=== PATIENT | female | born 1980 | race American Indian/Alaskan Native ===

== ENCOUNTER 2022-04-26 12:41 | Emergency (ER) | payer OTHER ==
[2022-04-26] MEDS ORDERED: ONDANSETRON 4 MG/2 ML INJ IV ONE (13:27)
[2022-04-26] MEDS ORDERED: FAMOTIDINE 20 MG/2 ML INJ IV ONE (13:27)
[2022-04-26] MEDS ORDERED: SODIUM CHLORIDE 0.9% 1000 ML 1,000 ML IV ONE (13:27)
[2022-04-26 14:51] LABS: Basophils % (Auto) 0.4 % (0.0-1.8); Eosinophils % (Auto) 0.3 % (0.0-4.3); Hematocrit 40.8 % (30.3-42.9); Hemoglobin 13.5 gm/dl (10.1-14.3); Lymphocytes # (Auto) 1.8 K/mm3 (1.2-5.4); Lymphocytes % (Auto) 18.9 % (13.4-35.0); Mean Corpuscular HGB Conc 33 % (30-34); Mean Corpuscular Volume 91 fl (79-97); Monocytes # (Auto) 0.6 K/mm3 (0.0-0.8); Monocytes % (Auto) 6.9 % (0.0-7.3); Platelet Count 228 K/mm3 (140-440); Red Blood Count 4.47 M/mm3 (3.65-5.03); Red Cell Distribution Width 14.8 % (13.2-15.2)
--- NOTE | 2022-04-26 14:59 | Emergency Department Report ---
ED N/V/D HPI - General Chief complaint: Nausea/Vomiting/Diarrhea Stated complaint: ABD PAIN/VOMITTING PUI?: Yes Time Seen by Provider: 04/26/22 13:05 Source: patient, EMS Mode of arrival: Ambulatory Limitations: No Limitations - History of Present Illness Initial comments: This is a 41-year-old female with a past medical history endometriosis and acid reflux who presents to the ED today via ambulance from work complaining of na usea vomiting and upper abdominal pain that began this morning while she was at work. Patient denies diarrhea, fever, chills. Patient states upper abdominal pain is localized to the upper abdomen and describes it as burning aching sharp. MD complaint: nausea, vomiting, abdominal pain Description of Vomiting: watery - Related Data Previous Rx's Medication Instructions Recorded Last Taken Type Dicyclomine [Bentyl] 40 mg PO BID #30 tablet 04/26/22 Unknown Rx Metoclopramide [Reglan] 10 mg PO TID #30 tab 04/26/22 Unknown Rx Omeprazole 20 mg PO BID #40 cap 04/26/22 Unknown Rx traMADoL [Ultram 50 MG tab] 50 mg PO Q6HR PRN #15 tablet 04/26/22 Unknown Rx Allergies Allergy/AdvReac Type Severity Reaction Status Date / Time No Known Allergies Allergy Unverified 04/26/22 13:01 ED Review of Systems ROS: Stated complaint: ABD PAIN/VOMITTING Other details as noted in HPI Constitutional: denies: chills, fever Eyes: denies: eye pain, eye discharge, vision change ENT: denies: ear pain, throat pain Respiratory: denies: cough, shortness of breath, wheezing Cardiovascular: denies: chest pain, palpitations Endocrine: no symptoms reported Gastrointestinal: abdominal pain, nausea, vomiting. denies: diarrhea Genitourinary: denies: urgency, dysuria, frequency, discharge Musculoskeletal: denies: back pain, joint swelling, arthralgia Skin: denies: rash, lesions Neurological: denies: headache, weakness, paresthesias Psychiatric: denies: anxiety, depression Hematological/Lymphatic: denies: easy bleeding, easy bruising ED Past Medical Hx - Medications Home Medications: Home Medications Medication Instructions Recorded Confirmed Last Taken Type Dicyclomine [Bentyl] 40 mg PO BID #30 tablet 04/26/22 Unknown Rx Metoclopramide [Reglan] 10 mg PO TID #30 tab 04/26/22 Unknown Rx Omeprazole 20 mg PO BID #40 cap 04/26/22 Unknown Rx traMADoL [Ultram 50 MG tab] 50 mg PO Q6HR PRN #15 tablet 04/26/22 Unknown Rx ED Physical Exam - General Limitations: No Limitations General appearance: alert, in distress, other (Clammy and sweaty) - Head Head exam: Present: atraumatic, normocephalic - Eye Eye exam: Present: normal appearance, PERRL Pupils: Present: normal accommodation - ENT ENT exam: Present: mucous membranes moist - Neck Neck exam: Present: normal inspection, full ROM - Respiratory Respiratory exam: Present: normal lung sounds bilaterally. Absent: respiratory distress, wheezes - Cardiovascular Cardiovascular Exam: Present: regular rate, normal rhythm. Absent: systolic murmur, diastolic murmur, rubs, gallop - GI/Abdominal GI/Abdominal exam: Present: soft, tenderness (To upper quadrant of the abdomen. Nontender in all other quadrants.), normal bowel sounds. Absent: guarding, rebound, rigid - Extremities Exam Extremities exam: Present: normal inspection, full ROM - Back Exam Back exam: Present: normal inspection, full ROM. Absent: CVA tenderness (R), CVA tenderness (L) - Neurological Exam Neurological exam: Present: alert, oriented X3 - Psychiatric Psychiatric exam: Present: normal affect, normal mood - Skin Skin exam: Present: warm, dry, intact, normal color. Absent: rash ED Course Vital Signs 04/26/22 12:41 Temperature 98.0 F Pulse Rate 88 Respiratory 18 Rate Blood Pressure 124/80 [Left] O2 Sat by Pulse 98 Oximetry ED Medical Decision Making - Lab Data Result diagrams: 04/26/22 13:20 04/26/22 13:20 - Radiology Data Radiology results: report reviewed ULTRASOUND ABDOMEN, COMPLETE INDICATION: upper abd pain w vomitting. COMPARISON: No relevant prior imaging study available. FINDINGS: Pancreas: No significant abnormality. Abdominal Aorta: No significant abnormality. IVC: No significant abnormality. Liver: The liver measures 15 cm in length. No significant abnormality. Normal hepatopedal blood flow in the main portal vein. Gallbladder: No significant abnormality. Bile ducts: No significant abnormality. Common bile duct measures 3 mm. Kidneys: Right: 10.2 cm in length. No significant abnormality. Left: 10.8 cm in length. No significant abnormality. Spleen: No significant abnormality. Free fluid: None. Additional Findings: None. IMPRESSION: No sonographic abnormality of the abdomen. Signer Name: Colton Fox Jr, MD Signed: 04/26/2022 4:00 PM Workstation Name: [id number] - Medical Decision Making This 41-year-old female presents with acute onset of nausea and vomiting today most like secondary to the acid reflux gastritis. All labs within normal limits. Urinalysis is negative. Ultrasound negative. Patient received medication in the ED. Patient upon reevaluation reports feeli ng better. Nausea/vomiting resolved. Vital signs are normal. Patient is in no acute distress. 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 Discussed brat diet. Patient understand instructions. Able to speak in clear sentences. Critical care attestation.: If time is entered above; I have spent that time in minutes in the direct care of this critically ill patient, excluding procedure time. ED Disposition Clinical Impression: Gastritis, Gastroenteritis, GERD with esophagitis Disposition: HOME / SELF CARE / HOMELESS Is pt being admited?: No Does the pt Need Aspirin: No Condition: Stable Instructions: Gastritis, Adult, [id number], Viral Gastroenteritis, Adult, Heartburn, [id number] Additional Instructions: Make sure to follow up with the primary care physician as discussed. Take all your medications as you've been prescribed. If you have any worsening symptoms or develop new symptoms please return to ED immediately. Prescriptions: Dicyclomine [Bentyl] 40 mg PO BID #30 tablet Omeprazole 20 mg PO BID #40 cap Metoclopramide [Reglan] 10 mg PO TID #30 tab traMADoL [Ultram 50 MG tab] 50 mg PO Q6HR PRN #15 tablet PRN Reason: Pain Referrals: [facility]EM[facility] [Primary Care Provider] - 3-5 Days [facility] [Provider Group] - 3-5 Days [facility] [Provider Group] - 3-5 Days Forms: Accompanied Note, Work/School Release Form(ED) Time of Disposition: 19:50
[2022-04-26] MEDS ORDERED: KETOROLAC 30 MG/1 ML INJ IV ONE (15:05)
[2022-04-26] MEDS ORDERED: diphenhydrAMINE 50 MG/ML VIAL IV ONE (15:05)
[2022-04-26] MEDS ORDERED: METOCLOPRAMIDE 10 MG/2 ML INJ IV ONE (15:05)
--- NOTE | 2022-04-26 16:05 | Ultrasound Report ---
ULTRASOUND ABDOMEN, COMPLETE INDICATION: upper abd pain w vomitting. COMPARISON: No relevant prior imaging study available. FINDINGS: Pancreas: No significant abnormality. Abdominal Aorta: No significant abnormality. IVC: No significant abnormality. Liver: The liver measures 15 cm in length. No significant abnormality. Normal hepatopedal blood flow in the main portal vein. Gallbladder: No significant abnormality. Bile ducts: No significant abnormality. Common bile duct measures 3 mm. Kidneys: Right: 10.2 cm in length. No significant abnormality. Left: 10.8 cm in length. No signif icant abnormality. Spleen: No significant abnormality. Free fluid: None. Additional Findings: None. IMPRESSION: No sonographic abnormality of the abdomen. Signer Name: Colton Fox Jr, MD Signed: 04/26/2022 4:00 PM Workstation Name: [id number]
[2022-04-26] MEDS ORDERED: MORPHINE 2 MG/1 ML INJ IV ONE (17:51)
[2022-04-26 17:59] LABS: Alanine Aminotransferase 10 units/L (7-56); Albumin 4.8 g/dL (3.9-5); BUN/Creatinine Ratio 10; Blood Urea Nitrogen 8 mg/dL (7-17); Calcium 9.3 mg/dL (8.4-10.2); Hemolysis Index 14
[2022-04-26 18:30] LABS: Mucus,Urine FEW /HPF
[2022-04-26 18:32] LABS: Color,Urine Yellow (Yellow)
[2022-04-26 19:08] LABS: Amphetamine Screen,Urine Negative; Benzodiazepines Screen,Urine Negative; Methadone Screen,Urine Negative; Opiate Screen,Urine Negative
[2022-04-26 19:25] LABS: Cannabinoid Screen,Urine PRESUMPTIVE POSITIVE; Cocaine Screen,Urine PRESUMPTIVE POSITIVE
[2022-04-26 20:50] VITALS: BP 126/84
== END 2022-04-26 20:50 | disposition home or self-care (01) ==
LOC: ED 12:41
DX: K52.9 Noninfective gastroenteritis and colitis, unspecified (principal); K29.70 Gastritis, unspecified, without bleeding; K21.00 Gastro-esophageal reflux disease with esophagitis, without bleeding; Z79.899 Other long term (current) drug therapy
CPT/HCPCS: 36415; 76700; 80053; 80307; 81001; 82150; 83690; 84702; 85025; 87086; 96361; 96374; 96375; 99284; J1200; J2270; J2405; J2765; J3490; J7030